=== PATIENT | female | born 1985 | race Caucasian/White ===

== ENCOUNTER 2017-03-22 10:02 | Emergency (ER) | payer OTHER ==
[~2017-03-22] VITALS: Ht 144.8 cm; Wt 48.2 kg
[~2017-03-22 10:02] MED LIST: BACT800T5 PO
[2017-03-22 10:12] VITALS: BP 92/62; PULSE 73; RESP 18; TEMP 99.6; O2SAT 98
[2017-03-22] MEDS ORDERED: ZOFR4TAB PO (11:19)
[2017-03-22] MEDS ORDERED: ZITHTAB PO (11:19)
--- NOTE | 2017-03-22 11:22 | PD ---
HPI Chief Complaint: Cold / Flu Symptoms Time Seen by Provider: 10:48 Travel History International Travel<30 days: No Contact w/Intl Traveler<30days: No Traveled to known affect area: No History of Present Illness HPI The patient was seen and examined in the presence of the nurse. She complains of cough as her primary complaint also having congestion and nausea and fever. No urinary complaints. No abdominal pains. Symptom severity is moderate PFSH Past Medical History Cancer: Yes (cervical) Cardiovascular Problems: Yes (irregular heart) Diminished Hearing: No Immunizations Current: Yes Tetanus Vaccination: < 5 Years Influenza Vaccination: No ?: Not LMP: end of february : 3 Para: 3 Tubal Ligation: Yes Past Surgical History Appendectomy: Yes Gynecologic Surgery: Yes (LEEP) Social History Alcohol Use: No Tobacco Use: Yes (1 pk week) Substance Use: No Allergies-Medications (Allergen,Severity, Reaction): Coded Allergies: Dilaudid (Verified Allergy, Unknown, seizures, 03/22/17) Reported Meds & Prescriptions Reported Meds & Active Scripts Active No Active Prescriptions or Reported Medications Review of Systems General / Constitutional: Positive: Fever HENT: No: Sore Throat Respiratory: Positive: Cough Gastrointestinal: Positive: Nausea Physical Exam Narrative RESPIRATORY: Respiratory effort unlabored, no retractions or use of accessory muscles. Breath sounds are clear and symmetric. NECK: Symmetrical appearance, midline trachea. No mass or crepitus. Thyroid without enlargement, tenderness, or mass. GASTROINTESTINAL: Abdomen soft, non-tender, nondistended. Positive bowel sounds. No hepato-splenomegaly, or palpable masses. No guarding. Throat clear Data Data Last Documented VS Vital Signs Date Time Temp Pulse Resp B/P Pulse Ox O2 Delivery O2 Flow Rate FiO2 03/22/17 10:46 98 Room Air 03/22/17 10:12 99.6 73 18 92/62 MDM Medical Decision Making Medical Screen Exam Complete: Yes Emergency Medical Condition: Yes Medical Record Reviewed: Yes Differential Diagnosis Bronchitis, pneumonia, flu syndrome Narrative Course I have reviewed the patient's electronic medical record. Presentation seems most consistent with an acute bronchitis presentation She has no meningeal signs I wrote her some Zofran and a course of Zithromax Blood pressure on the low side but she is 48 kg only and she says her blood pressure is always very low Diagnosis Primary Impression: Acute bronchitis Qualified Code: J20.9 - Acute bronchitis, unspecified organism Additional Instructions: The patient was advised to follow up with their physician and return if they worsen. Med/Other Pt SpecificInfo: Prescription(s) given Scripts Ondansetron (Zofran)4 Mg Tab4 Mg PO Q6HR PRN (NAUSEA OR VOMITING) #10 TAB Ref 0 Prov:Manpreet Vargas MD 03/22/17 Azithromycin (Zithromax Z-Shiva)250 Mg [id number] Mg PO DIRECTED #1 DSPK Ref 0 500 MG (2 tabs) day 1, then 1 tab days 2-5. Prov:Manpreet Vargas MD 03/22/17 Disposition: 01 DISCHARGE HOME Condition: Stable Manpreet Vargas MD Mar 22, 2017 11:22
[2017-03-22 11:30] VITALS: BP 100/56
== END 2017-03-22 11:31 | disposition home or self-care (01) ==
LOC: PHED 10:02
DX: J20.9 Acute bronchitis, unspecified (principal); R11.2 Nausea with vomiting, unspecified; F17.210 Nicotine dependence, cigarettes, uncomplicated; Z85.41 Personal history of malignant neoplasm of cervix uteri
CPT/HCPCS: 99284